=== PATIENT | female | born 1995 | race American Indian/Alaskan Native ===

== ENCOUNTER 2020-08-24 10:59 | Outpatient (CLI) | payer OTHER ==
[2020-08-24] MEDS ORDERED: VITAMIN C100 MG PO (11:04)
[2020-08-24] MEDS ORDERED: PRENATAL TABLE1 EAC1 PO (11:04)
== END 2020-08-25 12:55 | disposition home or self-care (01) ==
LOC: OBS/DEL 10:59
PROVIDERS: ATTEND Obstetrics & Gynecology
DX: O26.843 Uterine size-date discrepancy, third trimester (principal); O60.00 Preterm labor without delivery, unspecified trimester; O26.853 Spotting complicating pregnancy, third trimester

== ENCOUNTER 2020-10-30 13:15 | Inpatient (IN) | payer OTHER ==
[~2020-10-30] VITALS: Ht 167.6 cm; Wt 58.5 kg
[~2020-10-30 13:15] MED LIST: PRENATAL TABLE1 EAC1 PO; VITAMIN C100 MG PO
[2020-11-08] MEDS ORDERED: PRENATAL TABLE1 EAC1 PO (07:37)
[2020-11-08] MEDS ORDERED: OCUVITE EYE HE1 EACH PO (07:38)
== END 2020-11-10 12:27 | disposition home or self-care (01) | DRG 807 ==
LOC: LDR 11-08 05:42 → SURG-SUITE 11-08 14:14 → OB/GYN 11-10 13:15
PROVIDERS: ADMIT Obstetrics & Gynecology; ATTEND Obstetrics & Gynecology
PROC: 10E0XZZ Delivery of Products of Conception, External Approach (ICD-10-PCS; principal; 2020-11-08)
PROC: 0W8NXZZ Division of Female Perineum, External Approach (ICD-10-PCS; 2020-11-08)
PROC: 10907ZC Drainage of Amniotic Fluid, Therapeutic from Products of Conception, Via Natural or Artificial Opening (ICD-10-PCS; 2020-11-08)
PROC: 4A1HXFZ Monitoring of Products of Conception, Cardiac Rhythm, External Approach (ICD-10-PCS; 2020-11-08)
DX: O80 Encounter for full-term uncomplicated delivery (principal); Z37.0 Single live birth; Z3A.39 39 weeks gestation of pregnancy; Z20.822 Contact with and (suspected) exposure to COVID-19